=== PATIENT | male | born 1945 | race Two or more races ===

== ENCOUNTER 2023-11-07 15:44 | Emergency (ER) | payer OTHER ==
[~2023-11-07] VITALS: Ht 165.1 cm; Wt 65.8 kg
[2023-11-07] MEDS ORDERED: ATORVASTATIN CA10 MG PO (15:56)
[2023-11-07 17:48] LABS: URINE APPEARANCE Clear; URINE BILIRRUBIN Negative (NEGATIVE); URINE BLOOD Negative; URINE COLOR Yellow; URINE GLUCOSE Negative (NEGATIVE); URINE LEUKOCYTE Negative; URINE NITRATE Negative; URINE PROTEIN Negative (NEGATIVE); URINE UROBILINOGEN 0.2 E.U./dl
[2023-11-07 17:52] LABS: URINE RBC 23.1 uL (0.0-20.8); URINE WBC 3.4 uL (0.0-23.2)
[2023-11-07 18:03] LABS: HEMOGLOBIN 13.3 g/dL (13-16.00); MEAN CELL VOLUME 83.8 fL (80.0-100.00); MEAN CORPUSCULAR HEMOGLOBIN 28.5 pg (27.00-32.0); MEAN CORPUSCULAR HGB CONC 34.1 g/dl (32.0-36.0); PLATELET COUNT 223 K/uL (150-450); RED BLOOD COUNT 4.66 M/uL (4.00-6.00); RED CELL DISTRIBUTION WIDTH 12.9 % (11.5-14.5)
[2023-11-07 18:04] LABS: URINE BACTERIA 2.5 uL (0.0-1933); URINE EPITHELIAL CELLS 0.6 uL (0.0-38.8)
[2023-11-07 18:28] LABS: INR 1.05; PARTIAL THROMBOPLASTIN TIME 27.7 SECONDS (22.0-34.0)
[2023-11-07 18:40] LABS: ALBUMIN 3.5 gm/dL (3.4-5.0); BILIRUBIN TOTAL 0.99 mg/dL (0.3-1.2); CALCIUM 8.7 mg/dL (8.5-10.1); CREATININE SERUM 1.02 mg/dL (0.70-1.30); GFR 70.27; GLOBULINA 3.2 G/DL (2.4-3.5); POTASSIUM 4.41 mEq/L (3.5-5.1); TOTAL PROTEIN 6.7 gm/dL (6.4-8.2)
[2023-11-08] MEDS ORDERED: COZAAR25 MG (04:32)
[2023-11-08] MEDS ORDERED: VAZALORE81 MG (04:32)
[2023-11-08] MEDS ORDERED: DOLOGESIC-DF 51 EACH PO (07:29)
== END 2023-11-07 21:38 | disposition home or self-care (01) ==
LOC: ER 15:44 → EDSEX 16:00 → ER 16:00
PROVIDERS: General Practice
DX: R00.0 Tachycardia, unspecified (principal); I10 Essential (primary) hypertension; Z20.822 Contact with and (suspected) exposure to COVID-19
CPT/HCPCS: 36415; 71045; 93005; 93041; 96365; 96366; 99283; J7030

== ENCOUNTER 2023-11-08 04:16 | Emergency (ER) | payer OTHER ==
[~2023-11-08] VITALS: Ht 165.1 cm; Wt 62.6 kg
[~2023-11-08 04:16] MED LIST: ATORVASTATIN CA10 MG PO
[2023-11-08] MEDS ORDERED: COZAAR25 MG (04:32)
[2023-11-08] MEDS ORDERED: VAZALORE81 MG (04:32)
[2023-11-08 05:35] LABS: URINE APPEARANCE Clear; URINE BILIRRUBIN Negative (NEGATIVE); URINE BLOOD Negative; URINE COLOR Dark Yellow; URINE GLUCOSE Negative (NEGATIVE); URINE LEUKOCYTE Trace; URINE NITRATE Negative; URINE PROTEIN 30 (NEGATIVE)
[2023-11-08 05:38] LABS: URINE BACTERIA 25.2 uL (0.0-1933); URINE EPITHELIAL CELLS 5.7 uL (0.0-38.8); URINE RBC 56.6 uL (0.0-20.8)
[2023-11-08 05:44] LABS: HEMOGLOBIN 12.3 g/dL (13-16.00); MEAN CELL VOLUME 85.1 fL (80.0-100.00); MEAN CORPUSCULAR HEMOGLOBIN 29.1 pg (27.00-32.0); MEAN CORPUSCULAR HGB CONC 34.2 g/dl (32.0-36.0); PLATELET COUNT 201 K/uL (150-450); RED BLOOD COUNT 4.23 M/uL (4.00-6.00); RED CELL DISTRIBUTION WIDTH 13.3 % (11.5-14.5)
[2023-11-08] MEDS ORDERED: DOLOGESIC-DF 51 EACH PO (07:29)
== END 2023-11-08 07:33 ==
LOC: ER 04:16
PROVIDERS: General Practice
DX: B34.9 Viral infection, unspecified (principal); R50.9 Fever, unspecified; I10 Essential (primary) hypertension; Z20.822 Contact with and (suspected) exposure to COVID-19

== ENCOUNTER 2023-11-08 15:32 | Emergency (ER) | payer OTHER ==
[~2023-11-08] VITALS: Ht 165.1 cm; Wt 62.6 kg
[~2023-11-08 15:32] MED LIST changes: +COZAAR25 MG; +DOLOGESIC-DF 51 EACH PO; +VAZALORE81 MG
[2023-11-08 18:32] LABS: HEMATOCRIT 40.9 % (39.0-48.0); MEAN CELL VOLUME 84.6 fL (80.0-100.00); MEAN CORPUSCULAR HEMOGLOBIN 29.1 pg (27.00-32.0); MEAN CORPUSCULAR HGB CONC 34.4 g/dl (32.0-36.0); PLATELET COUNT 198 K/uL (150-450); RED BLOOD COUNT 4.83 M/uL (4.00-6.00); RED CELL DISTRIBUTION WIDTH 13.4 % (11.5-14.5)
[2023-11-08 18:33] LABS: PH,URINE 6.5 (5.0-8.0); URINE APPEARANCE Clear; URINE BILIRRUBIN Negative (NEGATIVE); URINE BLOOD Negative; URINE COLOR Dark Yellow; URINE GLUCOSE Negative (NEGATIVE); URINE LEUKOCYTE Trace; URINE NITRATE Negative; URINE PROTEIN 30 (NEGATIVE)
[2023-11-08 18:34] LABS: URINE BACTERIA 7.5 uL (0.0-1933); URINE EPITHELIAL CELLS 4.7 uL (0.0-38.8); URINE RBC 45.4 uL (0.0-20.8); URINE WBC 3.5 uL (0.0-23.2)
[2023-11-08 18:45] LABS: CALCIUM 8.9 mg/dL (8.5-10.1); CREATININE SERUM 1.19 mg/dL (0.70-1.30); GFR 58.82; POTASSIUM 4.76 mEq/L (3.5-5.1)
== END 2023-11-08 21:15 | disposition home or self-care (01) ==
LOC: ER 15:32
PROVIDERS: General Practice
DX: B34.9 Viral infection, unspecified (principal)